=== PATIENT | female | born 1990 | race Caucasian/White ===

== ENCOUNTER 2020-09-06 04:32 | Emergency (ER) | payer SELFPAY ==
[2020-09-06 06:14] VITALS: PULSE 88; RESP 18; TEMP 36.6; O2SAT 98; BMI 25.7
--- NOTE | 2020-09-06 06:18 | PC.NURSE ---
EXAMINED BY . PLAN FOR DISCHARGE HOME. LUNGS CLEAR TO AUSCULTATION, VITAL SIGNS WITHIN NORMAL RANGE. AFEBRILE. INSTRUCTED TO CONTINUE TO TAKE TYLENOL AND IBUPROFEN AT HOME FOR PAIN/FEVER MANAGEMENT.
[2020-09-06 06:19] VITALS: PULSE 88; O2SAT 98
--- NOTE | 2020-09-06 06:20 | ED.GENADULT ---
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 Review of Systems Review of Systems: Pertinent positives and negatives as stated in HPI and 10 point review of systems is otherwise negative. [facility] Past Medical History Source: nursing notes reviewed Social History Social History Advance Directives: No Advance Directives Information Provided: No Physical Exam Vital Signs: Vital Signs: Last Vital Signs Temp 97.9 F 09/06/20 06:14 Pulse 88 09/06/20 06:14 Resp 18 09/06/20 06:14 Pulse Ox 98 09/06/20 06:19 Body Mass Index 25.7 VITAL SIGNS: Reviewed. GENERAL: Well developed, well nourished, in no acute distress. HEAD: Normocephalic/atraumatic, EYES: PERRLA, EOMI intact without pain, no nystagmus/pallor/icterus noted EARS: Ext canals without abnormality, TMs non-bulging and non-erythematous NOSE: Nares patent bilateral OROPHARYNX: no oral lesions noted, posterior pharynx clear and non-erythematous without noted tonsillar enlargement/erythema/exudates NECK: Supple, no adenopathy LUNGS: Normal breath sounds. No adventitious sounds or accessory muscle use. SpO2<98> CARDIOVASCULAR: Regular rate and rhythm without noted murmurs, no JVD or lower extremity edema. ABDOMEN: Soft, non-tender, non-distended with bowel sounds. No rigidity. No guarding. No palpable masses or hernias noted MUSCULOSKELETAL: No tenderness, deformities, or effusions noted on gross inspection. EXTREMITIES: No cyanosis, clubbing or edema. SKIN: Inspection of the skin reveals no rashes, ulcerations, jaundice, pallor, or petechiae. NEUROLOGIC: Alert and oriented x 4. Strength and sensation to light touch were grossly intact x 4. Course Course Course Narrative: This is a 30-year-old female with history and clinical presentation likely secondary to viral symptomology as patient is not tachypneic, tachycardic, nor is she febrile or hypoxic. Patient was reassured and instructed to continue to take Tylenol ibuprofen to treat any residual inflammatory processes. She was discharged in stable condition. Discharge Plan Discharge Clinical Impression: Upper respiratory infection Qualifiers: URI type: unspecified viral URI Qualified Code(s): J06.9 - Acute upper respiratory infection, unspecified Patient Disposition: Home, Self-Care Instructions: Viral Syndrome (ED) Additional Instructions: 1. Tylenol 1000 mg, por v?a oral, cada 6 horas seg?n sea necesario para temperaturas superiores a 100,4?C o maty corporales. No exceda los 4000 mg en 24 horas. 2. Ibuprofeno 400 mg, por v?a oral con leche o alimentos, cada 6 horas seg?n sea necesario para temperaturas superiores a 100,4?C o maty corporales. El paciente y / o la jayce reconocen que comprenden los resultados (seg?n corresponda), el diagn?stico, el plan de tratamiento, la necesidad de seguimiento y los s?ntomas que deber?an impulsar el regreso a la john de emergencias. Print Language: Kiswahili
== END 2020-09-06 06:38 | disposition home or self-care (01) ==
PROVIDERS: Emergency Provider Student in an Organized Health Care Education/Training Program
DX: J06.9 Acute upper respiratory infection, unspecified (principal); R07.9 Chest pain, unspecified
CPT/HCPCS: 99283; 99284